=== PATIENT | female | born 1985 | race Caucasian/White ===

== ENCOUNTER 2018-06-08 21:26 | Emergency (ER) | payer MEDICAID ==
[~2018-06-08] VITALS: Ht 165.1 cm; Wt 54.4 kg
[2018-06-08 22:30] VITALS: BP 107/61
[2018-06-09] MEDS ORDERED: LIDOCAINE 1% INJ 50 ML MDV IJ ONE (01:27)
== END 2018-06-09 01:58 | disposition home or self-care (01) ==
LOC: ER 21:29
DX: L02.413 Cutaneous abscess of right upper limb (principal); F11.10 Opioid abuse, uncomplicated; Z59.0 Homelessness
CPT/HCPCS: 10060; 99283; A4606; A6402 ×2; A6407; J3490

== ENCOUNTER 2018-06-30 11:42 | Emergency (ER) | payer MEDICAID ==
[~2018-06-30] VITALS: Ht 165.1 cm; Wt 59.0 kg
[2018-06-30] MEDS ORDERED: VANCOMYCIN 1 GM in IV D5W 250 ML IV ONE (12:00)
[2018-06-30] MEDS ORDERED: IV NS 0.9% 1,000 ML BAG IV ONE ×2 (12:00→14:00)
[2018-06-30 12:14] LABS: BASOPHILS # (AUTO) 0.5 /CMM (0.0-0.2); BASOPHILS % (AUTO) 4.9 % (0.0-2.0); EOSINOPHILS % (AUTO) 4.3 % (0.0-6.0); HEMATOCRIT 34 % (33-45); HEMOGLOBIN 11.3 g/dL (11.5-14.8); LYMPHOCYTES # (AUTO) 0.8 /CMM (0.8-4.8); LYMPHOCYTES % (AUTO) 7.9 % (20.0-44.0); MEAN CORPUSCULAR HGB CONC 33 g/dl (31.0-36.0); MEAN CORPUSCULAR VOLUME 77 fL (82-100); MONOCYTES # (AUTO) 0.5 /CMM (0.1-1.30); MONOCYTES % (AUTO) 4.6 % (2.0-12.0); NEUTROPHILS # (AUTO) 8.2 /CMM (1.8-8.9); NEUTROPHILS % (AUTO) 78.3 % (43.0-81.0); PLATELET COUNT (AUTO) 496 /CMM (150-450); RED BLOOD CELL COUNT(AUTO) 4.43 MIL/uL (4.0-5.2); WHITE BLOOD COUNT (AUTO) 10.5 K/uL (4.3-11.0)
[2018-06-30 12:22] LABS: CALCIUM, SERUM 8.6 mg/dL (8.5-10.1); CREATININE 0.7 mg/dL (0.6-1.3); POTASSIUM 3.5 mmol/L (3.5-5.1)
[2018-06-30 12:27] LABS: ALBUMIN 2.3 g/dL (3.4-5.0); BILIRUBIN,DIRECT 0.1 mg/dL (0.0-0.2); BILIRUBIN,TOTAL 0.3 mg/dL (0.2-1.0); TOTAL PROTEIN, SERUM 7.6 g/dL (6.4-8.2)
--- NOTE | 2018-06-30 13:00 | NUR ---
patient presented to the ER c/o sore throat x 3 days, on room air, breathing evenly and unlabored. connected to the monitor and pulse ox. alert and oriented x 3, verbally responsive. kept comfortable, will continue to monitor accordingly.
[2018-06-30] MEDS ORDERED: CT SWABBABLE VALVE TRANS SET 1 EA INFUS.SET MC ONE (13:09)
[2018-06-30] MEDS ORDERED: IOHEXOL-300 100 ML VIAL IV ONE ×2 (13:09→13:47)
[2018-06-30] MEDS ORDERED: IV NS 0.9% 250 ML IV ONE (13:10)
[2018-06-30] MEDS ORDERED: KETOROLAC TROMETHAMINE 15 MG/ML VIAL ONE (15:12)
[2018-06-30] MEDS ORDERED: KETOROLAC TROMETHAMINE INJ 30 MG/ML VIAL IV ONE (15:30)
[2018-06-30 15:48] VITALS: BP 134/74
--- NOTE | 2018-06-30 15:50 | NUR ---
Patient does not wish to proceed with medical care recommended by Dr. Contreras. Patient given information related to possible complications, up to and including , which could occur as a result of leaving the hospital at this time. Patient verbalizes understanding of risks involved due to leaving against medical advice. Patient has signed AMA form. patient signed AMA form. Patient refused all resources/services offered at this time.
== END 2018-06-30 15:46 | disposition left against medical advice (07) ==
LOC: ER 11:43
DX: L02.413 Cutaneous abscess of right upper limb (principal); J02.9 Acute pharyngitis, unspecified; F19.10 Other psychoactive substance abuse, uncomplicated
CPT/HCPCS: 36415; 71045; 73201; 80048; 80076; 83605; 85025; 85730; 87040 ×2; 96365; 96375; 99284; A4606; J1885; J3370; J7030 ×2; J7050; J7060; Q9967 ×2

== ENCOUNTER 2018-12-30 23:55 | Emergency (ER) | payer MEDICAID ==
--- NOTE | 2018-12-31 00:28 | NUR ---
CALLED PATIENT IN WAITING ROOM. NO RESPONSE.
--- NOTE | 2018-12-31 01:02 | NUR ---
CALLED PATIENT IN WAITING ROOM. NO RESPONSE.
--- NOTE | 2018-12-31 01:57 | NUR ---
CALLED PATIENT IN WAITING ROOM. NO RESPONSE.
--- NOTE | 2018-12-31 03:41 | NUR ---
CALLED PATIENT IN WAITING ROOM. NO RESPONSE.
--- NOTE | 2018-12-31 04:06 | NUR ---
CALLED PATIENT TO BE TRIAGED, SLEEPING IN WAITING ROOM.
== END 2018-12-31 05:57 | disposition left against medical advice (07) ==
LOC: ER 23:56
DX: R42 Dizziness and giddiness (principal); M25.511 Pain in right shoulder; Z53.21 Procedure and treatment not carried out due to patient leaving prior to being seen by health care provider